=== PATIENT | female | born 1980 | race Caucasian/White ===

== ENCOUNTER 2021-12-23 18:40 | Emergency (ER) | payer MEDICAID ==
[~2021-12-23] VITALS: Ht 182.9 cm; Wt 116.4 kg
[2021-12-23 18:45] VITALS: TEMP 98.4
[2021-12-23] MEDS ORDERED: ULTRAM 50MG TAB50 MG PO (19:51)
[2021-12-23 20:01] VITALS: BP 125/81; PULSE 88
== END 2021-12-23 20:06 | disposition home or self-care (01) ==
LOC: COL.ER 18:40
DX: S93.602A Unspecified sprain of left foot, initial encounter (principal); Z87.81 Personal history of (healed) traumatic fracture; X50.1XXA Overexertion from prolonged static or awkward postures, initial encounter; Y92.22 Religious institution as the place of occurrence of the external cause
CPT/HCPCS: J1885; L4386

== ENCOUNTER 2022-03-04 19:28 | Emergency (ER) | payer MEDICAID ==
[~2022-03-04] VITALS: Ht 182.9 cm; Wt 123.2 kg
[~2022-03-04 19:28] MED LIST: ULTRAM 50MG TAB50 MG PO
[2022-03-04 19:33] VITALS: TEMP 98.7
[2022-03-04] MEDS ORDERED: PRISTIQ100 MG PO (19:36)
[2022-03-04] MEDS ORDERED: LYRICA 75MG CAP75 MG PO (19:36)
[2022-03-04] MEDS ORDERED: XANAX .25M0.25 MG/TA PO (19:36)
[2022-03-04] MEDS ORDERED: ZYRTEC 10MG10 MG PO (19:59)
[2022-03-04] MEDS ORDERED: BUSPAR DIVIDOSE15 MG PO ×2 (19:59→20:00)
[2022-03-04] MEDS ORDERED: SEROQUEL 1100 MG/TAB PO (20:00)
[2022-03-04] MEDS ORDERED: SEROQUEL 2525 MG/TAB PO (20:00)
[2022-03-04] MEDS ORDERED: ATARAX 25MG25 MG/TAB PO (20:37)
[2022-03-04 21:17] VITALS: BP 151/57; PULSE 90
== END 2022-03-04 21:17 | disposition home or self-care (01) ==
LOC: COL.ER 19:28
DX: F41.0 Panic disorder [episodic paroxysmal anxiety] (principal); L29.9 Pruritus, unspecified; F43.10 Post-traumatic stress disorder, unspecified; W57.XXXA Bitten or stung by nonvenomous insect and other nonvenomous arthropods, initial encounter
CPT/HCPCS: J1200; J1790; J2930; J7030